=== PATIENT | male | born 1945 | race Caucasian/White ===

== ENCOUNTER 2017-08-16 07:59 | Outpatient (CLI) | payer MEDICARE ==
--- NOTE | 2017-08-16 09:21 | Cat Scan Report ---
CT ABDOMEN WITHOUT CONTRAST History: Helical CT imaging through the abdomen without IV or oral contrast. Sagittal and coronal reformatted images. Comparison: None. History: Abnormal liver function studies. Findings: The liver is normal size, contour and attenuation. Tiny 3 mm calcified granuloma is noted in the right hepatic lobe. There is no evidence for fatty infiltration, mass, enlargement or surface nodularity. Normal spleen. The biliary system is within normal limits. No calcified gallstones or biliary dilatation is appreciated. Normal pancreas. Few scattered simple renal cysts are identified. The largest cyst measures 2.9 cm in the mid right kidney. 2 mm nonobstructing calyceal stone is noted in the inferior pole of the right kidney as well. Normal adrenal glands. The visualized bowel loops are within normal limits. The appendix is visualized and normal. The aorta is normal caliber with mild calcifications. No evidence for inflammatory changes, adenopathy, free air or fluid collection. The lung bases are clear. No suspicious bony findings. Impression: Normal liver and biliary system. Scattered renal cysts. 2 mm right renal stone, nonobstructing.
== END 2017-08-16 08:00 | disposition home or self-care (01) ==
LOC: CT 07:59
PROVIDERS: ATTEND Internal Medicine
DX: N28.1 Cyst of kidney, acquired (principal); N20.0 Calculus of kidney; K75.3 Granulomatous hepatitis, not elsewhere classified; R94.5 Abnormal results of liver function studies
CPT/HCPCS: 74150

== ENCOUNTER 2017-09-26 11:31 | Outpatient (CLI) | payer MEDICARE ==
--- NOTE | 2017-09-26 14:03 | XRay Report ---
LEFT WRIST, 3 views: HISTORY: Pain. Normal bone mineralization. There is no evidence for fracture, erosive joint pathology or bone lesion. No ligamentous injury. There is moderate soft tissue swelling on the dorsum of the hand near the level of the metacarpophalangeal joints. IMPRESSION: Nonspecific soft tissue swelling. No bony abnormality is detected.
== END 2017-09-26 11:32 | disposition home or self-care (01) ==
LOC: XRAY 11:31
PROVIDERS: ATTEND Internal Medicine
DX: M79.642 Pain in left hand (principal); M79.89 Other specified soft tissue disorders